=== PATIENT | female | born 1995 | race Caucasian/White ===

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

== ENCOUNTER 2018-06-10 09:56 | Observation (INO) | payer MEDICAID ==
[2018-06-10] MEDS ORDERED: PROMETHAZINE HCL 25 MG/ML INJ IVP ONE (10:18)
[2018-06-10] MEDS ORDERED: NS 1,000 ML IV ONE ×3 (10:18→16:00)
[2018-06-10] MEDS ORDERED: HALOPERIDOL LACT 5 MG/ML INJ IVP ONE (10:19)
--- NOTE | 2018-06-10 10:47 | EDPHY ---
H & P Stated Complaint: N/V/D X 1 WEEK - Personal History LMP (Females 10-55): 1-7 Days Ago Current Tetanus Diphtheria and Acellular Pertussis (TDAP): Yes Tetanus Vaccine Date: < 10 YEARS - Medical/Surgical History Hx Asthma: No Hx Chronic Respiratory Disease: No Hx Diabetes: Yes Hx Cardiac Disease: No Hx Renal Disease: No Hx Cirrhosis: No Hx Alcoholism: No Hx HIV/AIDS: No Hx Splenectomy or Spleen Trauma: No Other PMH: diabetic type 1, depression CELIAC DISEASE - Social History Smoking Status: Never smoked Time Seen by Provider: 06/10/18 10:08 HPI/ROS: CHIEF COMPLAINT: Intractable vomiting, history of diabetes, DKA HISTORY OF PRESENT ILLNESS: 22-year-old female history of recurrent episodes of nausea , vomiting, history of insulin-dependent diabetes, history of daily marijuana abuse, arrives via private vehicle complaining of intractable nausea, vomiting , diarrhea since this morning, feels similar to her prior recurrent episodes. She is typically seen at [facility] for this. She was admitted approximately 1 month ago at [facility] for similar. REVIEW OF SYSTEMS: 10 systems reviewed and negative with the exception of the elements mentioned in the history of present illness PAST MEDICAL & SURGICAL HISTORY: Insulin-dependent diabetes. Cyclic vomiting SOCIAL HISTORY:Daily marijuana. No alcohol use. PHYSICAL EXAM (Prior to examination, patient consented to physical exam, hands were washed and my usual and customary physical exam procedures followed) 1) GENERAL: Well-developed, well-nourished, alert and oriented. Appears uncomfortable, retching, appears anxious. 2) HEAD: Normocephalic, atraumatic 3) HEENT: Pupils equal, round, reactive to light bilaterally. Sclera anicteric. Nasopharynx, oropharynx, clear, no lesions. Dry mucous membranes. 4) NECK: Full range of motion, no meningeal signs. 5) LUNGS: Clear auscultation bilaterally, no wheezes, no rhonchi, no retractions. 6) HEART: Regular rate and rhythm, no murmur, no heave, no gallop. 7) ABDOMEN: No guarding, no rebound, no focal tenderness, negative McBurney's, negative Cabrera's, negative Rovsing's, negative peritoneal sign, I am unable to elicit any abdominal pain on exam 8) MUSCULOSKELETAL: Moving all extremities, no focal areas of tenderness, no obvious trauma. No peripheral edema or discoloration. 9) BACK: No CVA tenderness, no midline vertebral tenderness, no fluctuance, no step-off, no obvious trauma, no visual or palpable abnormality. 10) SKIN: No rash, no petechiae. 11) Psychiatric: Patient is oriented X 3, there is no agitation. DIFFERENTIAL DIAGNOSIS: In no particular order include but limited to cyclic vomiting syndrome, cannabis hyperemesis, DKA (Anthony,Ester Luz) Constitutional: Initial Vital Signs Temperature (C) 36.4 C 06/10/18 10:03 Heart Rate 82 06/10/18 10:03 Respiratory Rate 19 06/10/18 10:03 Blood Pressure 141/94 H 06/10/18 10:03 O2 Sat (%) 100 06/10/18 10:03 O2 Delivery Mode Room Air Allergies/Adverse Reactions: codeine [Codeine] Allergy (Unknown, Verified 06/10/18 09:58) adhesive tape Allergy (Verified 06/10/18 10:03) Home Medications: Medication Instructions Recorded Insulin Aspart [Novolog] 0 unit SQ DAILY 09/24/11 Insulin Glargine [Lantus 100 60 units SC HS #0 ml 05/31/16 UNITS/ML] Norgestimate-Ethinyl Estradiol 1 each PO DAILY 06/10/18 [Femynor 28 Tablet] Medical Decision Making ED Course/Re-evaluation: 1140am: This pt was seen and examined by me. Vomiting and diarrhea, history IDDM, blood sugar is 426 low bicarb, consistent with DKA. The patient feels that she is in DKA. A physical exam, she is pale. Abdomen is soft, mild diffuse tenderness. The DKA protocol was initiated. Serum ketones pending. ( Ines Palmer) 10:30 a.m.: I have reviewed the patient's old medical records. She has seen primarily at [facility] has been admitted and seen emergency department a repeatedly for episodes of intractable vomiting. She notes she typically responds well to Phenergan and Haldol. Will administer these as well as check laboratory studies including serum ketones and anion gap for possible DKA. 11:30 a.m.: Patient has been experiencing recurrent episodes of diarrhea, her bed has been necessitated changing repeatedly in the ER due to diarrhea in her bed as well as multiple trips to the bathroom for diarrhea. A stool sample has been obtained and is pending at this time. She is acidotic with elevated serum glucose. Patient was also seen and examined by Dr. Ines Palmer in the ER. Noon: Patient's anion gap elevated 16, elevated serum glucose, continues to vomit intractably. Awaiting VBG. Will plan on admission for possible DKA. Serum ketones pending. 12:12 p.m.: Consultation with hospitalist Dr. Richy Johnson recommends [facility] - Data Points Laboratory Results: Laboratory Results 06/10/18 10:40 06/10/18 10:40 06/10/18 06/10/18 06/10/18 11:45 11:25 10:40 WBC RBC Hgb Hct MCV MCH MCHC RDW Plt Count MPV Neut % (Auto) Lymph % (Auto) Stanley % (Auto) Eos % (Auto) Baso % (Auto) Nucleat RBC Rel Count Absolute Neuts (auto) Absolute Lymphs (auto) Absolute Monos (auto) Absolute Eos (auto) Absolute Basos (auto) Absolute Nucleated RBC Immature Gran % Immature Gran # Puncture Site VENOUS Patient Temperature 37.0 DEGREES DEGREES VBG pH 7.44 H (7.31-7.42) VBG HCO3 17 mEQ/L L mEQ/L (22-26) VBG Total CO2 18 mEq/L L mEq/L (21-27) VBG O2 Saturation 99 % H % (65-75) VBG Base Excess -5.2 mEq/L L mEq/L (-2.5-2.5) Mixed VBG pCO2 25 mmHg L mmHg (40-44) Mixed VBG pO2 141 mmHG H mmHG (35-40) Sodium Potassium Chloride Carbon Dioxide Anion Gap BUN Creatinine Estimated GFR Glucose Calcium Total Bilirubin Conjugated Bilirubin Unconjugated Bilirubin AST ALT Alkaline Phosphatase Total Protein Albumin Lipase Beta-Hydroxybutyrate 2.10 mmol/L H mmol/L (0.02-0.27) Beta HCG, Qual Stool Occult Bld Scrn NEGATIVE (NEGATIVE) Serum Ketones 06/10/18 06/10/18 06/10/18 10:40 10:40 10:40 WBC 12.09 10^3/uL H 10^3/uL (3.80-9.50) RBC 4.78 10^6/uL 10^6/uL (4.18-5.33) Hgb 14.0 g/dL g/dL (12.6-16.3) Hct 39.4 % % (38.0-47.0) MCV 82.4 fL fL (81.5-99.8) MCH 29.3 pg pg (27.9-34.1) MCHC 35.5 g/dL g/dL (32.4-36.7) RDW 11.8 % % (11.5-15.2) Plt Count 427 10^3/uL H 10^3/uL (150-400) MPV 9.4 fL fL (8.7-11.7) Neut % (Auto) 75.8 % H % (39.3-74.2) Lymph % (Auto) 18.1 % % (15.0-45.0) Stanley % (Auto) 5.1 % % (4.5-13.0) Eos % (Auto) 0.3 % L % (0.6-7.6) Baso % (Auto) 0.4 % % (0.3-1.7) Nucleat RBC Rel Count 0.0 % % (0.0-0.2) Absolute Neuts (auto) 9.15 10^3/uL H 10^3/uL (1.70-6.50) Absolute Lymphs (auto) 2.19 10^3/uL 10^3/uL (1.00-3.00) Absolute Monos (auto) 0.62 10^3/uL 10^3/uL (0.30-0.80) Absolute Eos (auto) 0.04 10^3/uL 10^3/uL (0.03-0.40) Absolute Basos (auto) 0.05 10^3/uL 10^3/uL (0.02-0.10) Absolute Nucleated RBC 0.00 10^3/uL 10^3/uL (0-0.01) Immature Gran % 0.3 % % (0.0-1.1) Immature Gran # 0.04 10^3/uL 10^3/uL (0.00-0.10) Puncture Site Patient Temperature VBG pH VBG HCO3 VBG Total CO2 VBG O2 Saturation VBG Base Excess Mixed VBG pCO2 Mixed VBG pO2 Sodium 133 mEq/L L mEq/L (135-145) Potassium 3.7 mEq/L mEq/L (3.5-5.2) Chloride 100 mEq/L mEq/L (97-110) Carbon Dioxide 17 mEq/l L mEq/l (22-31) Anion Gap 16 mEq/L H mEq/L (6-14) BUN 14 mg/dL mg/dL (7-23) Creatinine 0.4 mg/dL L mg/dL (0.6-1.0) Estimated GFR > 60 Glucose 426 mg/dL H mg/dL (70-100) Calcium 9.9 mg/dL mg/dL (8.5-10.4) Total Bilirubin 0.4 mg/dL mg/dL (0.1-1.4) Conjugated Bilirubin 0.4 mg/dL mg/dL (0.0-0.5) Unconjugated Bilirubin 0.0 mg/dL mg/dL (0.0-1.1) AST 30 IU/L IU/L (14-46) ALT 44 IU/L IU/L (9-52) Alkaline Phosphatase 129 IU/L H IU/L (38-126) Total Protein 6.6 g/dL g/dL (6.3-8.2) Albumin 4.3 g/dL g/dL (3.5-5.0) Lipase 69 IU/L IU/L (23-300) Beta-Hydroxybutyrate Beta HCG, Qual NEGATIVE Stool Occult Bld Scrn Serum Ketones 1:8 H (NEGATIVE) Microbiology Results: MICROBIOLOGY 06/10/18 11:25 Stool Gastrointestinal Tract Panel (PCR) - Final No Organism Detected By Pcr Medications Given: Discontinued Medications Haloperidol Lactate (Haldol Injection) 2.5 mg IVP EDNOW ONE Stop: 06/10/18 10:20 Last Admin: 06/10/18 11:06 Dose: 2.5 mg Sodium Chloride (Ns) 1,000 mls @ 0 mls/hr IV EDNOW ONE; Wide Open PRN Reason: Protocol Stop: 06/10/18 10:19 Last Admin: 06/10/18 10:46 Dose: 1,000 mls Sodium Chloride (Ns) 1,000 mls @ 0 mls/hr IV EDNOW ONE; Wide Open PRN Reason: Protocol Stop: 06/10/18 10:19 Last Admin: 06/10/18 10:46 Dose: 1,000 mls Potassium Chloride (Potassium Cl 10 Meq (Premix)) 100 mls @ 200 mls/hr IV Q30M DESTINEY Stop: 06/10/18 12:59 Last Admin: 06/10/18 12:48 Dose: 100 mls Insulin Human Regular 100 unit / Miscellaneous Medication 1 ea/ Sodium Chloride 101 mls @ 0 mls/hr IV EDNOW ONE; Per Protocol PRN Reason: Protocol Stop: 06/10/18 11:46 Last Admin: 06/10/18 12:26 Dose: 101 mls Promethazine HCl (Phenergan) 12.5 mg IVP EDNOW ONE Stop: 06/10/18 10:19 Last Admin: 06/10/18 10:48 Dose: 12.5 mg Departure - Departure Disposition: [facility] Acute Clinical Impression: Hyperglycemia, Cyclic vomiting history Intractable vomiting Qualifiers: Vomiting type: cyclical vomiting Nausea presence: with nausea Qualified Code(s) : G43.A1 - Cyclical vomiting, intractable Condition: Fair
[2018-06-10 10:57] LABS: PLATELET COUNT 427 10^3/uL (150-400)
[2018-06-10] MEDS ORDERED: INSULIN REGULAR HUMAN 100 UNIT, COSIGN. REQUIRED 1 EA in NS 100 ML IV ONE (11:45)
[2018-06-10] MEDS: POTASSIUM Cl (KCl) 100 ML IV SCH ×5 (11:46→22:58)
[2018-06-10] MEDS ORDERED: ACETAMINOPHEN 325 MG TAB PO PRN (13:16)
[2018-06-10] MEDS ORDERED: LORazepam 2 MG/ML INJ IVP PRN (13:16)
--- NOTE | 2018-06-10 14:38 | PDGENHP ---
History and Physical - Chief Complaint diarrhea, vomiting - History of Present Illness 22yo F with type 1 diabetes, cyclic vomiting presents with 1 week of diarrhea. Watery, no blood. >5 loose stools/day. No fevers or chills. This morning she woke up very nauseated and vomiting several times prompting her to come to the ED. No recent antibiotics, travel, or abnormal food exposures. No sick contacts. Her abdomen hurts all over. In the ED, BG >400, CO2 17, anion gap 16. She was started on DKA protocol with IV insulin and fluids. She had numerous episodes of diarrhea in the ED. She reports taking her insulin up until yesterday but did not today. She denies illicits except for occasional marijuana. She is being admitted for further evaluation and management. History Information - Allergies/Home Medication List Allergies/Adverse Reactions: codeine [Codeine] Allergy (Unknown, Verified 06/10/18 09:58) adhesive tape Allergy (Verified 06/10/18 10:03) Home Medications: Insulin Aspart [Novolog] 0 unit SQ DAILY 09/24/11 [Last Taken 04/06/12 10:30] Norgestimate-Ethinyl Estradiol [Femynor 28 Tablet] 1 each PO DAILY 06/10/18 [ Last Taken Unknown] I have personally reviewed and updated: family history, medical history, social history, surgical history - Past Medical History Additional medical history: type 1 diabetes, depression - Surgical History Reports: no pertinent surgical hx - Family History Positive for: non-pertinent - Social History Smoking Status: Never smoked Alcohol Use: None Drug Use: Marijuana (occasionally) Additional social history: 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 Lives with roommate and sister. Review of Systems Review of Systems: ROS: 10pt was reviewed & negative except for what was stated in HPI & below Physical Exam Physical Exam: Temp Pulse Resp BP Pulse Ox 36.4 C 60 18 146/104 H 97 06/10/18 10:03 06/10/18 11:46 06/10/18 11:46 06/10/18 11:46 06/10/18 11:46 Constitutional: appears nourished, uncomfortable Eyes: PERRL, anicteric sclera, EOMI Ears, Nose, Mouth, Throat: moist mucous membranes, hearing normal, ears appear normal, no oral mucosal ulcers Cardiovascular: regular rate and rhythym, no murmur, rub, or gallop, No edema Respiratory: no respiratory distress, no rales or rhonchi, clear to auscultation Gastrointestinal: normoactive bowel sounds, no palpable masses, tenderness ( diffusely), No guarding, No rebound, No distension Genitourinary: no bladder fullness, no bladder tenderness Skin: warm, normal color, no rashes or abrasions, no fluctuance, no induration, No mottled Musculoskeletal: full muscle strength, no muscle tenderness, normal joint ROM, no joint effusions Neurologic: AAOx3 Psychiatric: interacting appropriately, not anxious, not encephalopathic, thought process linear Lab Data & Imaging Review 06/10/18 10:40 06/10/18 14:25 WBC 12.09 10^3/uL (3.80-9.50) H 06/10/18 10:40 RBC 4.78 10^6/uL (4.18-5.33) 06/10/18 10:40 Hgb 14.0 g/dL (12.6-16.3) 06/10/18 10:40 POC Hgb 13.3 gm/dL (12.6-16.3) 06/10/18 13:30 Hct 39.4 % (38.0-47.0) 06/10/18 10:40 POC Hct 39 % (38-47) 06/10/18 13:30 MCV 82.4 fL (81.5-99.8) 06/10/18 10:40 MCH 29.3 pg (27.9-34.1) 06/10/18 10:40 MCHC 35.5 g/dL (32.4-36.7) 06/10/18 10:40 RDW 11.8 % (11.5-15.2) 06/10/18 10:40 Plt Count 427 10^3/uL (150-400) H 06/10/18 10:40 MPV 9.4 fL (8.7-11.7) 06/10/18 10:40 Neut % (Auto) 75.8 % (39.3-74.2) H 06/10/18 10:40 Lymph % (Auto) 18.1 % (15.0-45.0) 06/10/18 10:40 [place] % (Auto) 5.1 % (4.5-13.0) 06/10/18 10:40 Eos % (Auto) 0.3 % (0.6-7.6) L 06/10/18 10:40 Baso % (Auto) 0.4 % (0.3-1.7) 06/10/18 10:40 Nucleat RBC Rel Count 0.0 % (0.0-0.2) 06/10/18 10:40 Absolute Neuts (auto) 9.15 10^3/uL (1.70-6.50) H 06/10/18 10:40 Absolute Lymphs (auto) 2.19 10^3/uL (1.00-3.00) 06/10/18 10:40 Absolute Monos (auto) 0.62 10^3/uL (0.30-0.80) 06/10/18 10:40 Absolute Eos (auto) 0.04 10^3/uL (0.03-0.40) 06/10/18 10:40 Absolute Basos (auto) 0.05 10^3/uL (0.02-0.10) 06/10/18 10:40 Absolute Nucleated RBC 0.00 10^3/uL (0-0.01) 06/10/18 10:40 Immature Gran % 0.3 % (0.0-1.1) 06/10/18 10:40 Immature Gran # 0.04 10^3/uL (0.00-0.10) 06/10/18 10:40 Puncture Site NONE GIVEN 06/10/18 13:24 Patient Temperature 37.0 DEGREES 06/10/18 13:24 VBG pH 7.40 (7.31-7.42) 06/10/18 13:24 VBG HCO3 19 mEQ/L (22-26) L 06/10/18 13:24 VBG Total CO2 20 mEq/L (21-27) L 06/10/18 13:24 VBG O2 Saturation 99 % (65-75) H 06/10/18 13:24 VBG Base Excess -4.1 mEq/L (-2.5-2.5) L 06/10/18 13:24 Mixed VBG pCO2 32 mmHg (40-44) L 06/10/18 13:24 Mixed VBG pO2 130 mmHG (35-40) H 06/10/18 13:24 POC Sodium 139 mEq/L (135-145) 06/10/18 13:30 Sodium 133 mEq/L (135-145) L 06/10/18 10:40 POC Potassium 3.6 mEq/L (3.3-5.0) 06/10/18 13:30 Potassium 3.7 mEq/L (3.5-5.2) 06/10/18 10:40 POC Chloride 104 mEq/L (97-110) 06/10/18 13:30 Chloride 100 mEq/L (97-110) 06/10/18 10:40 Carbon Dioxide 17 mEq/l (22-31) L 06/10/18 10:40 POC Total CO2 20 mEq/L (22-31) L 06/10/18 13:30 Anion Gap 16 mEq/L (6-14) H 06/10/18 10:40 POC BUN 13 mg/dL (7-23) 06/10/18 13:30 BUN 14 mg/dL (7-23) 06/10/18 10:40 Creatinine 0.4 mg/dL (0.6-1.0) L 06/10/18 10:40 POC Creatinine 0.3 mg/dL (0.6-1.0) L 06/10/18 13:30 Estimated GFR > 60 06/10/18 10:40 Glucose 426 mg/dL (70-100) H 06/10/18 10:40 POC Glucose 287 mg/dL (70-100) H 06/10/18 13:30 Calcium 9.9 mg/dL (8.5-10.4) 06/10/18 10:40 Total Bilirubin 0.4 mg/dL (0.1-1.4) 06/10/18 10:40 Conjugated Bilirubin 0.4 mg/dL (0.0-0.5) 06/10/18 10:40 Unconjugated Bilirubin 0.0 mg/dL (0.0-1.1) 06/10/18 10:40 AST 30 IU/L (14-46) 06/10/18 10:40 ALT 44 IU/L (9-52) 06/10/18 10:40 Alkaline Phosphatase 129 IU/L (38-126) H 06/10/18 10:40 Total Protein 6.6 g/dL (6.3-8.2) 06/10/18 10:40 Albumin 4.3 g/dL (3.5-5.0) 06/10/18 10:40 Lipase 69 IU/L (23-300) 06/10/18 10:40 Beta-Hydroxybutyrate 2.10 mmol/L (0.02-0.27) H 06/10/18 10:40 Beta HCG, Qual NEGATIVE 06/10/18 10:40 Stool Occult Bld Scrn NEGATIVE (NEGATIVE) 06/10/18 11:25 Serum Ketones 1:8 (NEGATIVE) H 06/10/18 10:40 Assessment & Plan Assessment: 22yo F with type 1 diabetes, cyclic vomiting presents with 1 week of diarrhea and abrupt onset intractable vomiting found to be in very mild DKA. Plan: #DKA: Very mild. Not acidotic on VBG (although has been vomiting making her alkalotic) but ketones elevated. Gap closed in ED but still not tolerating PO. Precipitated by gi illness. - Started on protocol with IV insulin, IV fluids - Frequent BMP checks - Plan to transition to subQ insulin once tolerating PO #Diarrhea: GI PCR negative. Benign abdomen. Not septic. - Loperamide PRN - If not improving or change in abdominal exam, would obtain CT abd/pelvis #Nausea/vomiting: Cyclic vomiting vs precipitated by dka. - Phenergan prn #Type 1 diabetes: Management per above. Typically takes glargine 30u daily, novolog 5-10u w/meals. #Leukocytosis: No other s/s of infection. Defer antibiotics. #? depression: Not on medications currently. #Marijuana use VTE ppx: SCDs Code: full Diet: carb controlled Dispo: Admit under observation
[2018-06-10] MEDS ORDERED: LOPERAMIDE HCL 2 MG CAP PO PRN (14:51)
[2018-06-10] MEDS ORDERED: HYDROmorphONE/DILAUDID 1 MG/ML INJ IVP PRN (14:52)
[2018-06-10] MEDS ORDERED: oxyCODONE IR 5 MG TAB PO PRN (14:52)
[2018-06-10] MEDS: D10W 1,000 ML IV SCH ×2 (15:30→21:50)
[2018-06-10] MEDS: PROMETHAZINE HCL 25 MG/ML INJ IVP PRN ×2 (15:44→21:49)
[2018-06-10] MEDS ORDERED: PROTOCOL POTASSIUM 1 DOSE MISC PRN (15:48)
[2018-06-10] MEDS ORDERED: INSULIN REGULAR HUMAN 100 UNIT in NS 100 ML IV SCH (16:00)
[2018-06-10] MEDS ORDERED: NS 1,000 ML IV SCH (16:00)
[2018-06-10] MEDS ORDERED: RN:ENTER POTASSIUM ICU PROTOCOL ON WORKLIST MISC ONE (16:00)
[2018-06-10] MEDS ORDERED: NS 500 ML IV ONE (16:00)
[2018-06-10] MEDS ORDERED: D10W 1,000 ML IV PRN (16:00)
[2018-06-10] MEDS ORDERED: D50W 25 GM/50 ML SYR IVP PRN (16:00)
[2018-06-10] MEDS ORDERED: INSULIN GLARGINE 100 UNITS/ML UNIT SC SCH (21:00)
[2018-06-11] MEDS: POTASSIUM Cl (KCl) 100 ML IV SCH ×3 (08:17→10:22)
[2018-06-11] MEDS ORDERED: D50W 25 GM/50 ML SYR IVP PRN (10:53)
--- NOTE | 2018-06-11 11:49 | ASMTDCNOTE ---
Case Management Discharge Discharge Order Complete? Answers: Yes Patient to Obtain Answers: via Family Medications Transportation Arranged Answers: Family/Friends Discharge Comments Notes: Pt is a 22 yo M who presents with DKA. Pt is being discharged independently. Her dad is coming to pick her up and says that she has no concerns about obtaining medications or getting to her follow-up appts. No other needs identified at this time. Date Signed: 06/11/2018 11:46 AM Electronically Signed By:MOO Sabillon
[2018-06-11] MEDS ORDERED: INSULIN LISPRO 100 UNIT/ML SC SCH (12:00)
[2018-06-11 12:06] VITALS: BP 110/60
--- NOTE | 2018-06-11 12:09 | ASDISCHSUM ---
Discharge Information Plan Status:Home with No Needs Medically Cleared to Leave:06/11/2018 Discharge Date:06/11/2018 CM D/C Disposition:Home, Routine, Self-Care ADT D/C Disposition:Home, Routine, Self-Care Projected Discharge Date:06/11/2018 12:00 AM Transportation at D/C:Family Discharge Delay Reason: Follow-Up Date:06/11/2018 12:00 AM Discharge Slot: Final Diagnosis: Placement Information Patient Contact Information Contact Name:MORENO Relationship:Father Address:[address] Work Phone: City:[facility] Phone: [facility]/Zip Code:[place] [address] Email: Financial Information Financial Class:Medicaid Primary Plan Desc:MEDICAID HEALTH FIRST BLOOD [employer]OR [employer] Primary Plan Number:[id number] Secondary Plan Desc: Secondary Plan Number: Assessment Information Case Management Discharge Plan Note Case Management Discharge Discharge Order Complete? Answers: Yes Patient to Obtain Answers: via Family Medications Transportation Arranged Answers: Family/Friends Discharge Comments Notes: Pt is a 22 yo M who presents with DKA. Pt is being discharged independently. Her dad is coming to pick her up and says that she has no concerns about obtaining medications or getting to her follow-up appts. No other needs identified at this time. Date Signed: 06/11/2018 11:46 AM Electronically Signed By:MOO Sabillon LACE LACE Length of stay for Answers: Less than 1 day current admission Comorbidities - select Answers: Diabetes (uncontrolled or all that apply controlled) # of Emergency department Answers: 0 visits in the last 6 months Social determinants Answers: Mental health diagnosis (anxiety, depression, pers onality disorders, etc.) Score: 4 Date Signed: 06/11/2018 11:50 AM Electronically Signed By:MOO Sabillon Intervention Information
--- NOTE | 2018-06-12 01:25 | GDS ---
[f rep st] DISCHARGE SUMMARY DISCHARGE DIAGNOSES: 1. Diabetic ketoacidosis, resolved. 2. Type 1 diabetes mellitus. 3. Depression. HISTORY OF DETAILS: Please see history and physical dated June 10, 2018. In brief, the patient is a 22-year-old female with type 1 diabetes and cyclic vomiting, was sent to the emergency department w ith 1 week of diarrhea and vomiting. She was found to be in mild DKA and was admitted to the intensi ve care unit for DKA management. HOSPITAL COURSE: Patient was admitted to the ICU. She had a normal pH on her venous blood gas but k etones were elevated, and she had a slightly elevated anion gap metabolic acidosis. She was started on IV fluids and IV insulin drip. Her gap closed and she was transitioned to subcutaneous insulin. Her diarrhea completely resolved. Electrolytes were replaced. She was able to tolerate a full diet prior to discharge and is stable for discharge home. DISPOSITION: Patient is discharged home in stable condition. FOLLOWUP: Dr. Khadar Mackenzie, primary care. DISCHARGE MEDICATIONS: Please see [employer] for complete outpatient medication list. There are no ne w medications on discharge. She will continue her home insulin glargine 30 units subcutaneous q.h.s. , as well as insulin aspart sliding scale 5 to 10 units subcutaneous q.a.c. meals, as well as her ora l contraceptive pill. /[id number]/MODL
== END 2018-06-11 12:45 | disposition home or self-care (01) ==
LOC: F2N 15:18
PROVIDERS: ADMIT Internal Medicine; ATTEND Hospitalist
DX: E10.10 Type 1 diabetes mellitus with ketoacidosis without coma (principal); G43.A1 Cyclical vomiting, in migraine, intractable; D72.829 Elevated white blood cell count, unspecified; E86.9 Volume depletion, unspecified; F32.9 Major depressive disorder, single episode, unspecified; K90.0 Celiac disease
CPT/HCPCS: 96361; 96365; 96366; 96372; 96375; 96376; 99285; G0378; 82435-PO; 82565-PO; 82947-PO; 83605-ER; 84132-PO; 84295-PO; 84520-PO; 85014-ER; G0480; J1630; J1815; J2060; J2550; J3480

== ENCOUNTER 2018-06-12 09:30 | Observation (INO) | payer MEDICAID ==
[2018-06-12] MEDS ORDERED: NS 1,000 ML IV ONE ×2 (09:45)
--- NOTE | 2018-06-12 09:45 | EDPHY ---
H & P Stated Complaint: Pt states T1D, NVD today. Admitted overnight and dc'd yesterday for DKA Time Seen by Provider: 06/12/18 09:37 HPI/ROS: CHIEF COMPLAINT: Nausea vomiting since last evening HISTORY OF PRESENT ILLNESS: 22-year-old female history of cyclic vomiting, type 1 diabetes, discharged from [facility] yesterday for mild DKA, intractable vomiting, drove herself back to the ER stating that since last evening she has had return of her nausea vomiting and abdominal pain. She has vomited once but notes intractable nausea as well as diffuse nonspecific abdominal pain described as intolerable. She describes this pain as something at typically accompanies her episodes. She has traditionally been treated at [facility]. PRIMARY CARE PROVIDER: REVIEW OF SYSTEMS: 10 systems reviewed and negative with the exception of the elements mentioned in the history of present illness PAST MEDICAL & SURGICAL HISTORY: Cyclic vomiting. Type 1 diabetes. Depression. SOCIAL HISTORY:Daily marijuana use. PHYSICAL EXAM (Prior to examination, patient consented to physical exam, hands were washed and my usual and customary physical exam procedures followed) 1) GENERAL: Well-developed, well-nourished, alert and oriented. Appears uncomfortable, retching, crying, guarding abdomen 2) HEAD: Normocephalic, atraumatic 3) HEENT: Pupils equal, round, reactive to light bilaterally. Sclera anicteric. Nasopharynx, oropharynx, clear, no lesions. Dry mucous membranes. 4) NECK: Full range of motion, no meningeal signs. 5) LUNGS: Clear auscultation bilaterally, no wheezes, no rhonchi, no retractions. 6) HEART: Regular rate and rhythm, no murmur, no heave, no gallop. 7) ABDOMEN: Guarding abdomen, diffusely tender to palpation all quadrants with light touch. 8) MUSCULOSKELETAL: Moving all extremities, no focal areas of tenderness, no obvious trauma. No peripheral edema or discoloration. 9) BACK: No CVA tenderness, no midline vertebral tenderness, no fluctuance, no step-off, no obvious trauma, no visual or palpable abnormality. 10) SKIN: No rash, no petechiae. 11) Psychiatric: Patient is oriented X 3, there is no agitation. DIFFERENTIAL DIAGNOSIS: My differential diagnosis includes, but is not limited to, acute appendicitis, DKA, cyclic vomiting, cannabis hyperemesis, acute cholecystitis, bowel obstruction, acute pancreatitis, ectopic , gastritis - Personal History LMP (Females 10-55): 1-7 Days Ago Current Tetanus/Diphtheria Vaccine: Yes Current Tetanus Diphtheria and Acellular Pertussis (TDAP): Yes Tetanus Vaccine Date: < 10 YEARS - Medical/Surgical History Hx Asthma: No Hx Chronic Respiratory Disease: No Hx Diabetes: Yes Hx Cardiac Disease: No Hx Renal Disease: No Hx Cirrhosis: No Hx Alcoholism: No Hx HIV/AIDS: No Hx Splenectomy or Spleen Trauma: No Other PMH: diabetic type 1, depression CELIAC DISEASE - Social History Smoking Status: Never smoked Constitutional: Initial Vital Signs Temperature (C) 36.5 C 06/12/18 09:35 Heart Rate 78 06/12/18 09:35 Respiratory Rate 22 H 06/12/18 09:35 Blood Pressure 166/99 H 06/12/18 09:35 O2 Sat (%) 97 06/12/18 09:35 O2 Delivery Mode Room Air Allergies/Adverse Reactions: codeine [Codeine] Allergy (Intermediate, Verified 06/10/18 17:38) Hives adhesive tape Allergy (Verified 06/10/18 10:03) Home Medications: Medication Instructions Recorded Insulin Aspart [Novolog Flexpen] 5 - 10 units SC TIDMEAL 06/10/18 Insulin Glargine [Lantus 100 30 units SC HS 06/10/18 UNITS/ML] Norgestimate-Ethinyl Estradiol 1 each PO DAILY 06/10/18 [Femynor 28 Tablet] Medical Decision Making - Diagnostics Imaging Results: Imaging Impressions Abdomen CT 06/12/18 10:29 Impression: 1. Patchy opacity at the left lung base probably represents pneumonia. 2. Query enteritis. Results called and discussed with Adrienne NIXON on 06/12/2018 at 11:17 a.m. Images reviewed myself ED Course/Re-evaluation: 10:28 a.m.: Patient's old medical records have been reviewed by myself. I reviewed her stool study from 2 days ago which is negative for organisms. She was discharged from hospital yesterday for similar symptoms however that time she had mild DKA. Today she is not acidotic with an anion gap of 12, a glucose of 197. She has been given IV Haldol at this time and continues to receive IV fluids however at this time she complains of continued intractable abdominal pain which is a new symptom verses when she was admitted to the hospital 2 days ago. I wrote have offered Dilaudid which she states that she is able tolerate has no adverse or allergic reaction to (she had a listed codeine allergy in her medical record). We discussed more than likely readmission to the hospital. 11:30 a.m.: Staff radiologist has interpreted the patient's CT abdomen pelvis showing no definitive acute intra-abdominal pathology however is noted to have patchy infiltrates the left lower lobe which may be consistent with pneumonia, possible aspiration pneumonia given her history of recurrent vomiting. 11:50 a.m.: I communicated the CT findings to the admitting hospitalist Dr. Nadira Arellano, will hold on antibiotics for no pneumonia at this time - Data Points Laboratory Results: Laboratory Results 06/12/18 09:55 06/12/18 09:55 06/12/18 06/12/18 06/12/18 09:55 09:55 09:55 WBC RBC Hgb POC Hgb 13.6 gm/dL gm/dL (12.6-16.3) Hct POC Hct 40 % % (38-47) MCV MCH MCHC RDW Plt Count MPV Neut % (Auto) Lymph % (Auto) [place] % (Auto) Eos % (Auto) Baso % (Auto) Nucleat RBC Rel Count Absolute Neuts (auto) Absolute Lymphs (auto) Absolute Monos (auto) Absolute Eos (auto) Absolute Basos (auto) Absolute Nucleated RBC Immature Gran % Immature Gran # POC Sodium 142 mEq/L mEq/L (135-145) Sodium 138 mEq/L mEq/L (135-145) POC Potassium 3.3 mEq/L mEq/L (3.3-5.0) Potassium 3.7 mEq/L mEq/L (3.5-5.2) POC Chloride 105 mEq/L mEq/L (97-110) Chloride 106 mEq/L mEq/L (97-110) Carbon Dioxide 20 mEq/l L mEq/l (22-31) POC Total CO2 20 mEq/L L mEq/L (22-31) Anion Gap 12 mEq/L mEq/L (6-14) POC BUN < 3 mg/dL L mg/dL (7-23) BUN 3 mg/dL L mg/dL (7-23) Creatinine 0.4 mg/dL L mg/dL (0.6-1.0) POC Creatinine 0.4 mg/dL L D mg/dL (0.6-1.0) Estimated GFR > 60 Glucose 197 mg/dL H mg/dL (70-100) POC Glucose 202 mg/dL H mg/dL (70-100) Calcium 9.6 mg/dL mg/dL (8.5-10.4) Total Bilirubin 0.2 mg/dL mg/dL (0.1-1.4) Conjugated Bilirubin 0.1 mg/dL mg/dL (0.0-0.5) Unconjugated Bilirubin 0.1 mg/dL mg/dL (0.0-1.1) AST 40 IU/L IU/L (14-46) ALT 36 IU/L IU/L (9-52) Alkaline Phosphatase 96 IU/L IU/L (38-126) Total Protein 6.2 g/dL L g/dL (6.3-8.2) Albumin 4.0 g/dL g/dL (3.5-5.0) Lipase 76 IU/L IU/L (23-300) Beta-Hydroxybutyrate 0.17 mmol/L mmol/L (0.02-0.27) Beta HCG, Qual NEGATIVE Serum Ketones Cancelled 06/12/18 09:55 WBC 11.12 10^3/uL H 10^3/uL (3.80-9.50) RBC 4.48 10^6/uL 10^6/uL (4.18-5.33) Hgb 12.9 g/dL g/dL (12.6-16.3) POC Hgb Hct 38.4 % % (38.0-47.0) POC Hct MCV 85.7 fL fL (81.5-99.8) MCH 28.8 pg pg (27.9-34.1) MCHC 33.6 g/dL g/dL (32.4-36.7) RDW 12.2 % % (11.5-15.2) Plt Count 404 10^3/uL H 10^3/uL (150-400) MPV 9.4 fL fL (8.7-11.7) Neut % (Auto) 69.6 % % (39.3-74.2) Lymph % (Auto) 22.8 % % (15.0-45.0) [place] % (Auto) 6.5 % % (4.5-13.0) Eos % (Auto) 0.4 % L % (0.6-7.6) Baso % (Auto) 0.3 % % (0.3-1.7) Nucleat RBC Rel Count 0.0 % % (0.0-0.2) Absolute Neuts (auto) 7.75 10^3/uL H 10^3/uL (1.70-6.50) Absolute Lymphs (auto) 2.53 10^3/uL 10^3/uL (1.00-3.00) Absolute Monos (auto) 0.72 10^3/uL 10^3/uL (0.30-0.80) Absolute Eos (auto) 0.05 10^3/uL 10^3/uL (0.03-0.40) Absolute Basos (auto) 0.03 10^3/uL 10^3/uL (0.02-0.10) Absolute Nucleated RBC 0.00 10^3/uL 10^3/uL (0-0.01) Immature Gran % 0.4 % % (0.0-1.1) Immature Gran # 0.04 10^3/uL 10^3/uL (0.00-0.10) POC Sodium Sodium POC Potassium Potassium POC Chloride Chloride Carbon Dioxide POC Total CO2 Anion Gap POC BUN BUN Creatinine POC Creatinine Estimated GFR Glucose POC Glucose Calcium Total Bilirubin Conjugated Bilirubin Unconjugated Bilirubin AST ALT Alkaline Phosphatase Total Protein Albumin Lipase Beta-Hydroxybutyrate Beta HCG, Qual Serum Ketones Medications Given: Discontinued Medications Haloperidol Lactate (Haldol Injection) 2.5 mg IVP EDNOW ONE Stop: 06/12/18 09:47 Last Admin: 06/12/18 09:53 Dose: 2.5 mg Hydromorphone HCl (Dilaudid) 1 mg IVP EDNOW ONE Stop: 06/12/18 10:25 Last Admin: 06/12/18 10:28 Dose: 1 mg Sodium Chloride (Ns) 1,000 mls @ 0 mls/hr IV EDNOW ONE; Wide Open PRN Reason: Protocol Stop: 06/12/18 09:46 Last Admin: 06/12/18 09:53 Dose: 1,000 mls Sodium Chloride (Ns) 1,000 mls @ 0 mls/hr IV EDNOW ONE; Wide Open PRN Reason: Protocol Stop: 06/12/18 09:46 Last Admin: 06/12/18 09:53 Dose: 1,000 mls Ondansetron HCl (Zofran) 4 mg IVP EDNOW ONE Stop: 06/12/18 10:25 Last Admin: 06/12/18 10:28 Dose: 4 mg Point of Care Test Results: Chemistry 06/12/18 09:55 POC Sodium 142 mEq/L mEq/L (135-145) POC Potassium 3.3 mEq/L mEq/L (3.3-5.0) POC Chloride 105 mEq/L mEq/L (97-110) POC Total CO2 20 mEq/L L mEq/L (22-31) POC BUN < 3 mg/dL L mg/dL (7-23) POC Creatinine 0.4 mg/dL L D mg/dL (0.6-1.0) POC Glucose 202 mg/dL H mg/dL (70-100) ISTAT H&H 06/12/18 09:55 POC Hgb 13.6 gm/dL gm/dL (12.6-16.3) POC Hct 40 % % (38-47) Departure - Departure
[2018-06-12] MEDS ORDERED: HALOPERIDOL LACT 5 MG/ML INJ IVP ONE (09:46)
[2018-06-12 10:09] LABS: PLATELET COUNT 404 10^3/uL (150-400)
[2018-06-12] MEDS ORDERED: ONDANSETRON 4 MG/2 ML VIAL IVP ONE (10:24)
[2018-06-12] MEDS ORDERED: HYDROmorphONE/DILAUDID 1 MG/ML INJ IVP ONE (10:24)
[2018-06-12] MEDS ORDERED: IOPAMIDOL (ISOVUE-300) 100 ML BTL ONE (10:35)
[2018-06-12] MEDS ORDERED: PROMETHAZINE HCL 25 MG/ML INJ IVP PRN (11:10)
[2018-06-12] MEDS ORDERED: PROMETHAZINE HCL 25 MG TAB PO PRN (11:10)
[2018-06-12] MEDS ORDERED: ONDANSETRON DISINTEGRATING 4 MG TAB PO PRN (11:10)
[2018-06-12] MEDS ORDERED: ACETAMINOPHEN 325 MG TAB PO PRN (11:10)
[2018-06-12] MEDS ORDERED: ONDANSETRON 4 MG/2 ML VIAL IVP PRN (11:10)
[2018-06-12] MEDS ORDERED: D50W 25 GM/50 ML SYR IVP PRN (11:12)
[2018-06-12] MEDS ORDERED: NS W/ 20 KCl/L 1,000 ML IV SCH (11:15)
[2018-06-12] MEDS ORDERED: D50W 25 GM/50 ML SYR IVP ONE (12:51)
[2018-06-12] MEDS: INSULIN LISPRO 100 UNIT/ML SC SCH ×2 (13:49→18:10)
--- NOTE | 2018-06-12 14:04 | PDGENHP ---
History and Physical - Chief Complaint vomiting - History of Present Illness 22 yo female with h/o type 1 DM who was just discharged yesterday after brief hospitalization for DKA presents to ED with nausea and vomiting. She tolerated solid foods yesterday prior to discharge without nausea or vomiting. However, when she got home she began to feel poorly with some nausea. She went to work after eating chicken and rice. She continued to have nausea and vomited once. No hematemesis or coffee ground emesis. She reports 2 episodes of watery stools. No fevers. No recent atbx. No recent travel. No sick contacts or suspicious food exposures. In the ED, she received IVF's, Zofran and Haldol. CT showed mild enteritis. She is admitted for further management. History Information - Allergies/Home Medication List Allergies/Adverse Reactions: codeine [Codeine] Allergy (Intermediate, Verified 06/10/18 17:38) Hives adhesive tape Allergy (Verified 06/10/18 10:03) Home Medications: Insulin Aspart [Novolog Flexpen] 5 - 10 units SC TIDMEAL 06/10/18 [Last Taken 07:00] Insulin Glargine [Lantus 100 UNITS/ML] 30 units SC HS 06/10/18 [Last Taken 06/11 21:00] Ondansetron Odt [Zofran Odt 4 mg (*)] 4 mg PO Q4 PRN 06/12/18 [Last Taken 21:00] I have personally reviewed and updated: family history, medical history, social history, surgical history - Past Medical History diabetes type 1 (diagnosed at age 13) Additional medical history: type 1 diabetes, depression - Surgical History Reports: no pertinent surgical hx - Family History Positive for: non-pertinent - Social History Smoking Status: Never smoked Additional social history: 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 Lives with roommate and sister. Review of Systems Review of Systems: ROS: 10pt was reviewed & negative except for what was stated in HPI & below Physical Exam Physical Exam: Temp Pulse Resp BP Pulse Ox 36.6 C 71 16 106/73 97 06/12/18 13:20 06/12/18 13:20 06/12/18 13:20 06/12/18 13:20 06/12/18 13:20 Constitutional: no apparent distress Eyes: PERRL Ears, Nose, Mouth, Throat: moist mucous membranes Cardiovascular: regular rate and rhythym Respiratory: no respiratory distress, clear to auscultation Gastrointestinal: normoactive bowel sounds, other (soft, nd, mild TTP LLQ, no r/ r/g, no RUQ tenderness) Skin: warm Musculoskeletal: full muscle strength Neurologic: AAOx3 Psychiatric: anxious, other (tearful) Lab Data & Imaging Review 06/12/18 09:55 06/12/18 09:55 WBC 11.12 10^3/uL (3.80-9.50) H 06/12/18 09:55 RBC 4.48 10^6/uL (4.18-5.33) 06/12/18 09:55 Hgb 12.9 g/dL (12.6-16.3) 06/12/18 09:55 POC Hgb 13.6 gm/dL (12.6-16.3) 06/12/18 09:55 Hct 38.4 % (38.0-47.0) 06/12/18 09:55 POC Hct 40 % (38-47) 06/12/18 09:55 MCV 85.7 fL (81.5-99.8) 06/12/18 09:55 MCH 28.8 pg (27.9-34.1) 06/12/18 09:55 MCHC 33.6 g/dL (32.4-36.7) 06/12/18 09:55 RDW 12.2 % (11.5-15.2) 06/12/18 09:55 Plt Count 404 10^3/uL (150-400) H 06/12/18 09:55 MPV 9.4 fL (8.7-11.7) 06/12/18 09:55 Neut % (Auto) 69.6 % (39.3-74.2) 06/12/18 09:55 Lymph % (Auto) 22.8 % (15.0-45.0) 06/12/18 09:55 [place] % (Auto) 6.5 % (4.5-13.0) 06/12/18 09:55 Eos % (Auto) 0.4 % (0.6-7.6) L 06/12/18 09:55 Baso % (Auto) 0.3 % (0.3-1.7) 06/12/18 09:55 Nucleat RBC Rel Count 0.0 % (0.0-0.2) 06/12/18 09:55 Absolute Neuts (auto) 7.75 10^3/uL (1.70-6.50) H 06/12/18 09:55 Absolute Lymphs (auto) 2.53 10^3/uL (1.00-3.00) 06/12/18 09:55 Absolute Monos (auto) 0.72 10^3/uL (0.30-0.80) 06/12/18 09:55 Absolute Eos (auto) 0.05 10^3/uL (0.03-0.40) 06/12/18 09:55 Absolute Basos (auto) 0.03 10^3/uL (0.02-0.10) 06/12/18 09:55 Absolute Nucleated RBC 0.00 10^3/uL (0-0.01) 06/12/18 09:55 Immature Gran % 0.4 % (0.0-1.1) 06/12/18 09:55 Immature Gran # 0.04 10^3/uL (0.00-0.10) 06/12/18 09:55 POC Sodium 142 mEq/L (135-145) 06/12/18 09:55 Sodium 138 mEq/L (135-145) 06/12/18 09:55 POC Potassium 3.3 mEq/L (3.3-5.0) 06/12/18 09:55 Potassium 3.7 mEq/L (3.5-5.2) 06/12/18 09:55 POC Chloride 105 mEq/L (97-110) 06/12/18 09:55 Chloride 106 mEq/L (97-110) 06/12/18 09:55 Carbon Dioxide 20 mEq/l (22-31) L 06/12/18 09:55 POC Total CO2 20 mEq/L (22-31) L 06/12/18 09:55 Anion Gap 12 mEq/L (6-14) 06/12/18 09:55 POC BUN < 3 mg/dL (7-23) L 06/12/18 09:55 BUN 3 mg/dL (7-23) L 06/12/18 09:55 Creatinine 0.4 mg/dL (0.6-1.0) L 06/12/18 09:55 POC Creatinine 0.4 mg/dL (0.6-1.0) L D 06/12/18 09:55 Estimated GFR > 60 06/12/18 09:55 Glucose 197 mg/dL (70-100) H 06/12/18 09:55 POC Glucose 155 mg/dL (70-100) H 06/12/18 13:45 Calcium 9.6 mg/dL (8.5-10.4) 06/12/18 09:55 Total Bilirubin 0.2 mg/dL (0.1-1.4) 06/12/18 09:55 Conjugated Bilirubin 0.1 mg/dL (0.0-0.5) 06/12/18 09:55 Unconjugated Bilirubin 0.1 mg/dL (0.0-1.1) 06/12/18 09:55 AST 40 IU/L (14-46) 06/12/18 09:55 ALT 36 IU/L (9-52) 06/12/18 09:55 Alkaline Phosphatase 96 IU/L (38-126) 06/12/18 09:55 Total Protein 6.2 g/dL (6.3-8.2) L 06/12/18 09:55 Albumin 4.0 g/dL (3.5-5.0) 06/12/18 09:55 Lipase 76 IU/L (23-300) 06/12/18 09:55 Beta-Hydroxybutyrate 0.17 mmol/L (0.02-0.27) 06/12/18 09:55 Beta HCG, Qual NEGATIVE 06/12/18 09:55 Serum Ketones Cancelled 06/12/18 09:55 Assessment & Plan Assessment: Nausea / vomiting with diarrhea - refractory. Per chart review, pt has h/o cyclic vomiting and she states this occurs every month. She does use THC. -admit for supportive care -IVF's, anti-emetics -send GI PCR if diarrhea recurs Type 1 DM - had low BG in ED, took her insulin last night and hasn't eaten today. Nl AG, not in DKA. -reduce lantus dose until better po intake -SSI Possible LLL opacity - doubt PNA, no fevers or cough -check PCT -monitor off atbx Depression - not on meds -outpt f/u Full code DVT PPLX - low risk Dispo - obs
[2018-06-12] MEDS ORDERED: HYDROmorphONE/DILAUDID 1 MG/ML INJ IVP PRN (16:04)
[2018-06-12 16:18] VITALS: BP 105/63
--- NOTE | 2018-06-12 19:03 | HOSPPROG ---
Hospitalist Progress Note Assessment/Plan: Received notification from daytime nurse patient would like to be discharged as she no longer feels nauseous or has vomiting. I spoke to the patient at bedside regarding risks of her leaving against medical advice seeing how she was recently admitted and discharged and then came back today for admittance with the exact same symptoms. She understands the risks of leaving against medical advice, she does not want to be further monitored and receive supportive care in the hospital and prefers to follow up with her primary care doctor for her symptoms. She has medical decision capabilities, is alert and oriented x3. I notified daytime nurse regarding patient's desire to leave against medical advice. Objective: Vital Signs Temp Pulse Resp BP Pulse Ox 36.6 C 76 16 105/63 96 06/12/18 16:14 06/12/18 16:14 06/12/18 16:14 06/12/18 16:14 06/12/18 16:14 06/11/18 06/12/18 06/13/18 05:59 05:59 05:59 Intake Total 1180 Balance 1180 ICD10 Worksheet Patient Problems: Problems Problem Status Onset DKA (diabetic ketoacidoses) Acute Hyperglycemia Acute Intractable vomiting Acute
[2018-06-12] MEDS ORDERED: INSULIN GLARGINE 100 UNITS/ML UNIT SC SCH (21:00)
== END 2018-06-12 19:20 | disposition left against medical advice (07) ==
LOC: F3E 13:12
PROVIDERS: ADMIT Internal Medicine; ATTEND Internal Medicine
DX: R11.2 Nausea with vomiting, unspecified (principal); E10.649 Type 1 diabetes mellitus with hypoglycemia without coma; F32.9 Major depressive disorder, single episode, unspecified
CPT/HCPCS: 74177; 96361; 96374; 96375; 99285; G0378; 82435-PO; 82565-PO; 82947-PO; 84132-PO; 84295-PO; 84520-PO; 85014-ER; J1170; J1630; J1815; J2405; Q9967